=== PATIENT | male | born 1935 ===

== ENCOUNTER 2018-01-16 02:13 | Emergency (ER) | payer MEDICARE, MEDICAID ==
[2018-01-16 02:14] VITALS: BMI 42.9
--- NOTE | 2018-01-16 03:42 | ED PDOC ---
Arrival/HPI - General Chief Complaint: ENT Problem Time Seen by Provider: 01/16/18 02:18 Historian: Patient - History of Present Illness Narrative History of Present Illness (Text): 01/16/18 03:38 82 year old male, whose past medical history includes seizures, COPD/asthma, hyperlipidemia, hypertension and gastritis, presents to the emergency department complaining of discomfort when swallowing for the past 3 days. Patient states he feels like his throat is dry when he swallows. He reports he has been eating and drinking without difficulty. Patient denies any fever, chills, chest pain, shortness of breath, nausea, vomiting, diarrhea, urinary symptoms, back pain, neck pain, headache, dizziness, or any other complaints. Time/Duration: Other (3 days) Symptom Onset: Gradual Symptom Course: Unchanged Activities at Onset: Light Context: Home Past Medical History - Provider Review Nursing Documentation Reviewed: Yes - Infectious Disease Hx of Infectious Diseases: None - Tetanus Immunization Tetanus Immunization: Unknown - Cardiac Hx Hypertension: Yes - Pulmonary Hx Asthma: Yes - Neurological Hx Seizures: Yes - Psychiatric Hx Substance Use: No - Surgical History Hx Orthopedic Surgery: Yes (bilat knees) - Suicidal Assessment Feels Threatened In Home Enviroment: No Family/Social History - Physician Review Nursing Documentation Reviewed: Yes Family/Social History: No Known Family HX Smoking Status: Former Smoker Hx Alcohol Use: No Hx Substance Use: No Hx Substance Use Treatment: No Allergies/Home Meds Allergies/Adverse Reactions: Allergies No Known Allergies Allergy (Verified 07/07/14 09:17) Review of Systems - Physician Review All systems were reviewed & negative as marked: Yes - Review of Systems Constitutional: absent: Fevers, Other (Chills) ENT: Other (Difficulty swollowing ) Respiratory: absent: SOB Cardiovascular: absent: Chest Pain Gastrointestinal: absent: Diarrhea, Nausea, Vomiting Genitourinary Male: absent: Dysuria, Frequency, Hematuria Musculoskeletal: absent: Back Pain, Neck Pain Neurological: absent: Headache, Dizziness Physical Exam Vital Signs Reviewed: Yes Vital Signs Temp Pulse Resp BP Pulse Ox 01/16/18 02:18 97.8 F 81 18 151/76 H 97 Temperature: Afebrile Blood Pressure: Normal Pulse: Regular Respiratory Rate: Normal Appearance: Positive for: Well-Appearing, Non-Toxic, Comfortable Pain Distress: None Mental Status: Positive for: Alert and Oriented X 3 - Systems Exam Head: Present: Atraumatic, Normocephalic Pupils: Present: PERRL Extroacular Muscles: Present: EOMI Conjunctiva: Present: Normal Ears: Present: NORMAL TM Mouth: Present: Moist Mucous Membranes Pharnyx: Present: ERYTHEMA. No: EXUDATE, TONSILS ENLARGED, Peritonsilar Swelling, Uvular Deviation, Muffled/Hoarse Voice, Strider, Soft Palate/Uvular Edema Neck: Present: Normal Range of Motion Respiratory/Chest: Present: Clear to Auscultation, Good Air Exchange. No: Respiratory Distress, Accessory Muscle Use Cardiovascular: Present: Regular Rate and Rhythm, Normal S1, S2. No: Murmurs Abdomen: Present: Normal Bowel Sounds. No: Tenderness, Distention, Peritoneal Signs Back: Present: Normal Inspection Upper Extremity: Present: Normal Inspection. No: Cyanosis, Edema Lower Extremity: Present: Normal Inspection. No: Edema Neurological: Present: GCS=15, CN II-XII Intact, Speech Normal Skin: Present: Warm, Dry, Normal Color. No: Rashes Psychiatric: Present: Alert, Oriented x 3, Normal Insight, Normal Concentration Medical Decision Making ED Course and Treatment: 01/16/18 03:39 Impression: 82 year old male presents complaining of difficulty swallowing for the past 3 days. Plan: -- Neck Soft Tissie w/o contrast -- Reassess and disposition Progress Notes: EXAM: CT Neck Without Intravenous Contrast Dictated and Authenticated by: Francois Arreola MD 01/16/2018 4:58 AM IMPRESSION: 1. No acute findings. 2. Non-acute findings are described above - RAD Interpretation Radiology Orders: 01/16/18 03:31 NECK SOFT TISSUE W/O CONTRAST [CT] Stat - Scribe Statement The provider has reviewed the documentation as recorded by the Scribe Virgil Mckeon Provider Scribe Attestation: All medical record entries made by the Scribe were at my direction and personally dictated by me. I have reviewed the chart and agree that the record accurately reflects my personal performance of the history, physical exam, medical decision making, and the department course for this patient. I have also personally directed, reviewed, and agree with the discharge instructions and disposition. Disposition/Present on Arrival - Present on Arrival Any Indicators Present on Arrival: No History of DVT/PE: No History of Uncontrolled Diabetes: No Urinary Catheter: No History of Decub. Ulcer: No History Surgical Site Infection Following: None - Disposition Have Diagnosis and Disposition been Completed?: Yes Diagnosis: Pharyngitis, Throat dry Disposition: HOME/ ROUTINE Disposition Time: 05:56 Patient Plan: Discharge Condition: GOOD Additional Instructions: Take meds as prescribed/drink cool liquids/follow up with the ear/nose/throat doctor today. Dr. Fitzgerald Prescriptions: Amoxicillin [Amoxicillin 250mg/5ml Susp] 10 ml PO TID #210 ml Referrals: Baldemar Fitzgerald DO [[facility]] - Follow up with primary Forms: [employer] (Vietnamese)
--- NOTE | 2018-01-16 04:58 | CT ---
EXAM: CT Neck Without Intravenous Contrast CLINICAL HISTORY: 82 years old, male; Signs and symptoms; Dysphagia / difficulty swallowing TECHNIQUE: Axial computed tomography images of the neck without intravenous contrast. All CT scans at this facility use one or more dose reduction techniques, viz.: automated exposure control; ma/kV adjustment per patient size (including targeted exams where dose is matched to indication; i.e. head); or iterative reconstruction technique. Coronal and sagittal reformatted images were created and reviewed. COMPARISON: No relevant prior studies available. FINDINGS: Limitations: Lack of intravenous contrast. Nasopharynx: Unremarkable. Oropharynx: No significant tonsillar enlargement. Tonsilliths. Hypopharynx: Unremarkable. Larynx: Unremarkable. Normal epiglottis. Trachea: Unremarkable. Retropharyngeal space: Unremarkable. Submandibular/parotid glands: Unremarkable. Glands are normal in size. Thyroid: Unremarkable. No enlarged or calcified nodules. Bones/joints: Degenerative changes of cervical spine. No acute fracture. Soft tissues: Unremarkable. Vasculature: Minimal to mild atherosclerotic disease. Lymph nodes: No pathologically enlarged lymph nodes. Sinuses: Scattered minimal mucosal thickening. No air-fluid levels. Mastoid air cells: No mastoid effusion. Orbits: Unremarkable as visualized. Lung apices: Unremarkable as visualized. IMPRESSION: 1.No acute findings. 2.Non-acute findings are described above.
[2018-01-16] MEDS ORDERED: Amoxicillin 250 mg/5 ml Susp (150 ml) PO STA (05:58)
[2018-01-16 06:19] VITALS: BP 140/75; PULSE 80; RESP 17; TEMP 98.2; O2SAT 98
== END 2018-01-16 06:19 | disposition home or self-care (01) ==
LOC: ED 02:13
DX: J02.9 Acute pharyngitis, unspecified (principal); J39.2 Other diseases of pharynx; Z87.891 Personal history of nicotine dependence

== ENCOUNTER 2018-03-07 15:42 | Emergency (ER) | payer MEDICARE, MEDICAID ==
[2018-03-07 15:43] VITALS: BMI 42.9
[2018-03-07 16:02] VITALS: RESP 18; TEMP 97.7
[2018-03-07 17:17] LABS: BASO # 0.02 K/mm3 (0.0-2.0); BASO % 0.3 % (0.0-3.0); EOS # 0.6 (0.0-0.7); EOS % 8.9 % (1.5-5.0); GRAN # 3.7 (1.4-6.5); GRAN % 51.5 % (50.0-68.0); LYMPH # 2.2 (1.2-3.4); LYMPH % 30.1 % (22.0-35.0); MEAN CELL VOLUME 91.6 fl (80.0-105.0); MEAN CORPUSCULAR HEMOGLOBIN 30.7 pg (25.0-35.0); MEAN CORPUSCULAR HGB CONC 33.5 g/dl (31.0-37.0); MEAN PLATELET VOLUME 11.3 fl (7.0-11.0); MONO # 0.7 (0.1-0.6); MONO % 9.2 % (1.0-6.0); RBC 3.91 10^6/uL (3.5-6.1); RED CELL DISTRIBUTION WIDTH 14.3 % (11.5-14.5); WHITE BLOOD COUNT 7.2 10^3/ul (4.5-11.0)
[2018-03-07 17:18] LABS: CALCIUM 9.3 mg/dL (8.4-10.5); GFR AFRICAN-AMERICAN > 60; GFR NON-AFRICAN AMERICAN 53
[2018-03-07 17:23] LABS: ALB/GLOB RATIO 1.2 (1.1-1.8); ALBUMIN 4.4 g/dL (3.0-4.8); ALT/SGPT 22 U/L (7-56); AST/SGOT 37 U/L (17-59); BLOOD UREA NITROGEN 26 mg/dL (7-21)
--- NOTE | 2018-03-07 17:24 | ED PDOC ---
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 Patient reports that last week, he had a "procedure" that involved instrumentation of his urethra and his rectum. His pain and bleeding started after that procedure. He denies changes in bowel habits, diarrha, constipation, abdominal pain, fever, chills, nausea, vomiting, weight loss, fatigue, dizziness, lightheadedness, headache, chest pain, palpitations. Patient reports a history of hemorrhoids. Patient describes bleeding as seeing blood on the napkin when he wipes. Time/Duration: < week Symptom Course: Unchanged Quality: Burning Activities at Onset: Other Past Medical History - Provider Review Nursing Documentation Reviewed: Yes - Infectious Disease Hx of Infectious Diseases: None - Tetanus Immunization Tetanus Immunization: Unknown - Cardiac Hx Hypertension: Yes Other/Comment: cardiac problem - Pulmonary Hx Asthma: Yes - Neurological Hx Alzheimer's Disease: Yes Hx Seizures: Yes - Psychiatric Hx Substance Use: No - Surgical History Hx Orthopedic Surgery: Yes (bilat knees) - Anesthesia Hx Anesthesia: Yes Hx Anesthesia Reactions: No - Suicidal Assessment Feels Threatened In Home Enviroment: No Family/Social History - Physician Review Nursing Documentation Reviewed: Yes Family/Social History: Unknown Family HX Smoking Status: Former Smoker Hx Alcohol Use: No Hx Substance Use: No Hx Substance Use Treatment: No Allergies/Home Meds Allergies/Adverse Reactions: Allergies No Known Allergies Allergy (Verified 07/07/14 09:17) Home Medications: Home Meds Medication Instructions Recorded Confirmed Dabigatran [Pradaxa] 150 mg PO BID 03/07/18 03/07/18 Diclofenac Sodium [Diclo Gel] 1 each TP PRN 03/07/18 03/07/18 Fluticasone/Salmeterol [Advair 1 each IH DAILY 03/07/18 03/07/18 250-50 Diskus] Gabapentin [Neurontin] 300 mg PO DAILY 03/07/18 03/07/18 Hydrocortisone 1% Cream [Cortizone 30 applic TOP PRN 03/07/18 03/07/18 1% Cream] Levofloxacin [Levaquin] 500 mg PO DAILY 03/07/18 03/07/18 Levothyroxine [Synthroid] 0.1 mg PO DAILY 03/07/18 03/07/18 Nabumetone [Relafen] 750 mg PO BID 03/07/18 03/07/18 Pantoprazole [Protonix] 40 mg PO DAILY 03/07/18 03/07/18 Polyethylene Glycol 3350 [Miralax] 17 gm PO PRN PRN 03/07/18 03/07/18 Simvastatin [Zocor] 40 mg PO DAILY 03/07/18 03/07/18 Tamsulosin [Flomax] 0.4 mg PO DAILY 03/07/18 03/07/18 Valsartan [Diovan] 160 mg PO DAILY 03/07/18 03/07/18 Review of Systems - Review of Systems Constitutional: Normal Eyes: Normal ENT: Normal Respiratory: Normal Cardiovascular: Normal Gastrointestinal: Hematochezia Genitourinary Male: Normal Musculoskeletal: Normal Skin: Normal Neurological: Normal Endocrine: Normal Hemo/Lymphatic: Normal Psychiatric: Normal Physical Exam Vital Signs Reviewed: Yes Vital Signs Temp Pulse Resp BP Pulse Ox 03/07/18 19:25 69 18 147/76 100 03/07/18 15:55 97.7 F 88 18 147/79 96 Temperature: Afebrile Blood Pressure: Normal Pulse: Regular Respiratory Rate: Normal Appearance: Positive for: Well-Appearing, Non-Toxic, Comfortable Pain Distress: Mild Mental Status: Positive for: Alert and Oriented X 3 - Systems Exam Head: Present: Atraumatic, Normocephalic Pupils: Present: PERRL Extroacular Muscles: Present: EOMI Conjunctiva: Present: Normal Mouth: Present: Moist Mucous Membranes Neck: Present: Normal Range of Motion Respiratory/Chest: Present: Clear to Auscultation, Good Air Exchange. No: Respiratory Distress, Accessory Muscle Use Cardiovascular: Present: Regular Rate and Rhythm, Normal S1, S2 Abdomen: Present: Normal Bowel Sounds. No: Tenderness, Distention Rectal: Present: Occult Blood, Rectal Tenderness, Gross Blood, Hemorrhoids, Normal Rectal Tone. No: Melena, Fissures, Nodule/Mass/Lesions Upper Extremity: Present: Normal Inspection Lower Extremity: Present: Normal Inspection Neurological: Present: GCS=15, CN II-XII Intact Skin: Present: Warm, Dry, Normal Color Psychiatric: Present: Alert, Oriented x 3, Normal Insight, Normal Concentration Medical Decision Making ED Course and Treatment: 03/07/18 21:58 Impression: Rectal bleeding and pain Differential diagnosis includes but is not limited to: Hemorrhoids, anal fissure , mass with occult bleed, anemia 2/2 GIB Plan: -- Labs -- CT A/P -- Reasses and dispo Progress Note: -- Discussed with Dr. Kenroy Chirinos, who reports that "procedure" was attempted rico catheterization , which failed due to urethra stricture. Patient has history of urinary retention. Rectal exam/probe/US was done during the same procedure. -- H/H stable; hemodynamically stable; patient was able to urinate in the ER -- CT A/P significant for complex fluid collection/mass in anterior left pelvis , unlikely to be related to rectal bleeding/pain, recommend repeat CT scan in a month. Discussed with Dr. Hernandez, who is covering for patient's PMD Dr. Paredes. CT also showed mild fat stranding near duodenum/stomach, unrelated to current clinical presentation. -- Pain and bleeding likely 2/2 internal hemorrhoids and instrumention while on anticoagulation -- Discussed with patient high fiber diet, follow up instructions, and to return to ER for new or worsening symptoms, especially chest pain, shortness of breath, palpitations, or dizziness, especially with continued bleeding. -- Discharged to home - Lab Interpretations Lab Results: 03/07/18 17:04 03/07/18 17:04 Lab Results 03/07/18 19:13: Urine Color Yellow, Urine Appearance Clear, Urine pH 6.0, Ur Specific Durand 1.015, Urine Protein Negative, Urine Glucose (UA) Negative, Urine Ketones Negative, Urine Blood Trace-lysed H, Urine Nitrate Negative, Urine Bilirubin Negative, Urine Urobilinogen 0.2, Ur Leukocyte Esterase Trace H , Urine RBC 0 - 2, Urine WBC 1 - 3, Ur Epithelial Cells 3 - 4, Urine Bacteria Few 03/07/18 18:06: PT 12.5, INR 1.09 H, APTT 39.7 H 03/07/18 17:52: Blood Type O POSITIVE, Antibody Screen Negative, BBK History Checked No verified bt 03/07/18 17:04: Sodium 139, Potassium 4.4, Chloride 104, Carbon Dioxide 25, Anion Gap 15, BUN 26 H, Creatinine 1.3, Est GFR ( Amer) > 60, Est GFR ( Non-Af Amer) 53, Random Glucose 105, Calcium 9.3, Total Bilirubin 0.4, AST 37, ALT 22, Alkaline Phosphatase 106, Total Protein 8.0, Albumin 4.4, Globulin 3.6, Albumin/Globulin Ratio 1.2 03/07/18 17:04: WBC 7.2 D, RBC 3.91, Hgb 12.0 L, Hct 35.8 L, MCV 91.6, MCH 30.7 , MCHC 33.5, RDW 14.3, Plt Count 211, MPV 11.3 H, Gran % 51.5, Lymph % (Auto) 30.1, Crenshaw % (Auto) 9.2 H, Eos % (Auto) 8.9 H, Baso % (Auto) 0.3, Gran # 3.70, Lymph # (Auto) 2.2, Crenshaw # (Auto) 0.7 H, Eos # (Auto) 0.6, Baso # (Auto) 0.02 - RAD Interpretation Radiology Orders: 03/07/18 19:22 ABD & PELVIS W/O PO OR IV CONT [CT] Stat Disposition/Present on Arrival - Present on Arrival Any Indicators Present on Arrival: No History of DVT/PE: No History of Uncontrolled Diabetes: No Urinary Catheter: No History of Decub. Ulcer: No History Surgical Site Infection Following: None - Disposition Have Diagnosis and Disposition been Completed?: Yes Diagnosis: Internal hemorrhoid, bleeding, Pelvic mass, Rectal bleeding Disposition: HOME/ ROUTINE Disposition Time: 22:06 Patient Plan: Discharge Patient Problems: Current Active Problems Problem Status Onset Internal hemorrhoid, bleeding Acute Pelvic mass Acute Rectal bleeding Acute Condition: FAIR Discharge Instructions (ExitCare): Hemorrhoids (DC), Gastrointestinal Bleeding (DC) Print Language: AMERICAN Additional Instructions: -- Follow up with your primary care doctor within 3-5 days -- Follow up with Dr. Chirinos on Monday -- Use anusol and preparation H as discussed -- Return to the ER for any new or worsening concerns Prescriptions: Hydrocortisone 2.5% (Rectal) [Anusol-HC] 1 applic [place] BID PRN #1 tube PRN Reason: Pain, Mild (1-3) Referrals: [facility] [place] [facility], [Primary Care Provider] - Follow up with primary Forms: Viyet (Sri Lankan)
[2018-03-07 18:37] LABS: INR 1.09 (0.93-1.08); PARTIAL THROMBOPLASTIN TIME 39.7 Seconds (25.1-36.5); PROTHROMBIN TIME 12.5 SECONDS (9.4-12.5)
[2018-03-07 19:26] VITALS: O2SAT 100
[2018-03-07 19:27] LABS: URINE BILIRUBIN NEGATIVE (NEGATIVE); URINE BLOOD TRACE-LYSED (NEGATIVE); URINE GLUCOSE (UA) NEGATIVE (NEGATIVE); URINE LEUKOCYTE ESTERASE TRACE Leu/uL (NEGATIVE); URINE PROTEIN NEGATIVE mg/dL (<30 mg/dL); URINE UROBILINOGEN 0.2 E.U./dL (<1 E.U./dL)
[2018-03-07 19:35] LABS: URINE APPEARANCE CLEAR (CLEAR); URINE COLOR YELLOW (YELLOW)
[2018-03-07 19:45] LABS: URINE BACTERIA FEW (NEG); URINE RBC 0 - 2 /hpf (0-2)
--- NOTE | 2018-03-07 21:04 | CT ---
EXAM: CT Abdomen and Pelvis Without Intravenous Contrast EXAM DATE/TIME: 03/07/2018 7:22 PM CLINICAL HISTORY: The patient age is 82 years old and is male; Signs and symptoms; Other: Pain and rectal bleeding; Additional info: Rectal pain and bleeding Facility exam id and description: Ct abdpelscon abd pelvis w/o po or iv cont TECHNIQUE: Axial computed tomography images of the abdomen and pelvis without intravenous contrast. All CT scans at this facility use one or more dose reduction techniques, viz.: automated exposure control; ma/kV adjustment per patient size (including targeted exams where dose is matched to indication; i.e. head); or iterative reconstruction technique. Coronal and sagittal reformatted images were created and reviewed. COMPARISON: US - ABDOMEN COMPLETE 2017-07-19 09:58 FINDINGS: Lung bases: Nonspecific groundglass density and increased interstitial markings are identified at the bilateral lung bases. There is an increase in pleural fat bilaterally. Heart: There is coronary artery calcification. ABDOMEN: Liver: Unremarkable. No mass. Gallbladder and bile ducts: No calcified stones. No ductal dilation. Pancreas: Normal contour. No ductal dilation. Spleen: Splenules are visualized. There is no splenomegaly. Adrenals: A right adrenal nodule is visualized measuring 2.0 x 1.6 cm. This has a density of -27.4 HU, suggestive of an adenoma. Kidneys and ureters: A retroaortic left renal vein is visualized. No obstructing stones. No hydronephrosis. Stomach and bowel: There is mild stranding of the fat in the right upper quadrant, adjacent to the duodenum and distal stomach. This is suggestive of inflammation. Moderate fecal material is identified within the colon. Appendix: The appendix is not visualized. Small surgical clips are identified adjacent to the cecum. PELVIS: Bladder: No stones. A bladder diverticulum is visualized posteriorly. Reproductive: Unremarkable as visualized. ABDOMEN and PELVIS: Intraperitoneal space: Within the left anterior pelvis, there is a 2.3 x 1.9 cm complex fluid collection or mass, which is hypodense centrally. This may be contributed by post operative changes. Bones/joints: Postoperative changes are identified, with a right hip prosthesis. Hypertrophic degenerative changes are noted within the spine. There is mild retrolisthesis of L2 on L3. Hyperostosis is visualized within the lower thoracic spine. Soft tissues: There is herniation of fat into the right inguinal canal. Vasculature: There is atherosclerotic calcification of the abdominal aorta. Lymph nodes: Nonspecific inguinal lymph nodes are identified, prominent fatty chucho and thin cortices. There is no significant retroperitoneal lymphadenopathy. IMPRESSION: 1. A right adrenal nodule is visualized measuring 2.0 x 1.6 cm, suggestive of an adenoma. 2. Within the left anterior pelvis, there is a 2.3 x 1.9 cm complex fluid collection or mass. This may be contributed by post operative changes. Clinical correlation and a follow-up CT with contrast is recommended. 3. There is mild stranding of the fat in the right upper quadrant, adjacent to the duodenum and distal stomach. This is suggestive of inflammation. 4. Additional CT findings described above.
[2018-03-08 00:16] VITALS: BP 137/85; PULSE 82
== END 2018-03-07 22:15 | disposition home or self-care (01) ==
LOC: ED 15:42
DX: K64.8 Other hemorrhoids (principal); K62.5 Hemorrhage of anus and rectum; R19.00 Intra-abdominal and pelvic swelling, mass and lump, unspecified site; I10 Essential (primary) hypertension; E78.5 Hyperlipidemia, unspecified; R56.9 Unspecified convulsions; G30.9 Alzheimer's disease, unspecified; Z87.891 Personal history of nicotine dependence